=== PATIENT | female | born 1990 | race Caucasian/White ===

== ENCOUNTER 2017-06-04 12:43 | Outpatient (CLI) | payer OTHER ==
[~2017-06-04] VITALS: Ht 160 cm; Wt 87.2 kg
[2017-06-04 12:55] VITALS: BP 126/84
[2017-06-04 13:04] LABS: MICROSCOPIC AUTO
[2017-06-04 13:18] LABS: PROTEIN/CREATININE RATIO,URINE < 352 (0-200); TOTAL PROTEIN,URINE RANDOM < 5 mg/dL (0-12)
[2017-06-04 13:18] LABS: BASOPHILS # (AUTO) 0.05 x10^3/uL (0-0.1); BASOPHILS % (AUTO) 0 % (0-1); EOSINOPHILS # (AUTO) 0.14 x10^3/uL (0-0.4); EOSINOPHILS % (AUTO) 1 % (1-7); LYMPHOCYTES # (AUTO) 1.59 x10^3/uL (1-3.4); LYMPHOCYTES % (AUTO) 13 % (22-44); MD NO; MEAN CORPUSCULAR HEMOGLOBIN 30.9 pg (27.0-34.8); MEAN CORPUSCULAR HGB CONC 33.9 g/dL (32.4-35.8); MEAN CORPUSCULAR VOLUME 91.1 fL (80-100); MEAN PLATELET VOLUME 6.7 fL (7.4-10.4); MONOCYTES # (AUTO) 0.58 x10^3/uL (0.2-0.8); MONOCYTES % (AUTO) 5 % (2-9); NEUTROPHILS # (AUTO) 10.15 x10^3/uL (1.8-6.8); NEUTROPHILS % (AUTO) 81 % (42-75); PLATELET COUNT 383 x10^3/uL (130-400); RED BLOOD COUNT 3.81 x10^6/uL (3.82-5.3); RED CELL DISTRIBUTION WIDTH 12.9 % (9.6-15.2)
[2017-06-04 13:29] LABS: ALBUMIN 2.8 g/dL (3.4-5.0); ANION GAP 10 mmol/L (5-15); CALCIUM 8.5 mg/dL (8.5-10.1); CHLORIDE 109 mmol/L (98-107)
[2017-06-04 13:33] LABS: ALANINE AMINOTRANSFERASE 27 U/L (12-78); ALKALINE PHOSPHATASE 70 U/L (45-117); BILIRUBIN,TOTAL 0.3 mg/dL (0.2-1.0); CREATININE 0.45 mg/dL (0.55-1.02); TOTAL PROTEIN 6.6 g/dL (6.4-8.2)
[2017-06-04 13:34] LABS: BILIRUBIN, DIRECT < 0.1 mg/dL (0.1-0.2)
== END 2017-06-04 14:16 | disposition home or self-care (01) ==
LOC: LDOP 12:43
PROVIDERS: ATTEND Obstetrics & Gynecology
DX: O13.3 Gestational [pregnancy-induced] hypertension without significant proteinuria, third trimester (principal); Z3A.30 30 weeks gestation of pregnancy
CPT/HCPCS: 36415; 59025; 80053; 81001; 81050; 82248; 82570; 83615; 84156; 84550; 85025; 99201; G0463

== ENCOUNTER 2017-08-10 09:55 | Outpatient (CLI) | payer OTHER ==
[~2017-08-10] VITALS: Ht 160 cm; Wt 93.0 kg
[~2017-08-10 09:55] MED LIST: OMEP20TA62 PO; PREN1TAB60 PO
[2017-08-10 10:15] VITALS: BP 127/70
== END 2017-08-10 11:33 | disposition home or self-care (01) ==
LOC: LDOP 09:55 → EDSTATUS 08-12 09:54
PROVIDERS: ATTEND Obstetrics & Gynecology
DX: O26.893 Other specified pregnancy related conditions, third trimester (principal); R10.9 Unspecified abdominal pain; Z3A.39 39 weeks gestation of pregnancy
CPT/HCPCS: 59025; 99211; G0463

== ENCOUNTER 2017-08-11 07:55 | Inpatient (IN) | payer OTHER ==
[~2017-08-11] VITALS: Ht 160 cm; Wt 80.7 kg
[2017-08-11] MEDS ORDERED: D5%-LACTATED RINGERS 1,000 ML IV SCH (08:26)
[2017-08-11] MEDS ORDERED: OXYTOCIN 30U/ 0.9% NaCL 500ML 500 ML IV ONE (08:26)
[2017-08-11] MEDS ORDERED: TERBUTALINE 1 MG/ML, 1ML IVPush PRN (08:30)
[2017-08-11] MEDS ORDERED: FENTANYL PF 100 MCG/2ML IV PRN (08:30)
[2017-08-11] MEDS ORDERED: FENTANYL PF 100 MCG/2ML IVPush PRN (08:30)
[2017-08-11] MEDS ORDERED: ONDANSETRON 2MG/ML, 2ML IVPush PRN (08:30)
[2017-08-11] MEDS ORDERED: FENTANYL PF 100 MCG/2ML ONE (08:41)
[2017-08-11 09:04] LABS: MEAN CORPUSCULAR HEMOGLOBIN 29.8 pg (27.0-34.8); MEAN CORPUSCULAR HGB CONC 33.3 g/dL (32.4-35.8); MEAN CORPUSCULAR VOLUME 89.4 fL (80-100); MEAN PLATELET VOLUME 6.8 fL (7.4-10.4); PLATELET COUNT 384 x10^3/uL (130-400); RED BLOOD COUNT 3.93 x10^6/uL (3.82-5.3); RED CELL DISTRIBUTION WIDTH 13.7 % (9.6-15.2)
[2017-08-11] MEDS ORDERED: FENTANYL/BUPIV./NS/PF 250 ML EPIDCONT SCH ×2 (09:24)
[2017-08-11] MEDS ORDERED: LACTATED RINGERS 1,000 ML IV SCH ×2 (09:24)
[2017-08-11] MEDS ORDERED: BUPIVACAINE/PF 0.25% ONE (09:27)
[2017-08-11] MEDS ORDERED: FENTANYL/BUPIV./NS/PF 250 ML EPIDCONT ONE (09:27)
[2017-08-11] MEDS ORDERED: NALOXONE 0.4 MG/ML, 1ML IVPush PRN ×2 (09:30)
[2017-08-11] MEDS ORDERED: EPHEDRINE 50 MG/ML, 1ML IVPush PRN ×2 (09:30)
[2017-08-11] MEDS ORDERED: LACTATED RINGERS 1,000 ML IVBOLUS PRN ×2 (09:30)
[2017-08-11 09:33] LABS: BASOPHILS # (AUTO) 0.06 x10^3/uL (0-0.1); BASOPHILS % (AUTO) 0 % (0-1); EOSINOPHILS # (AUTO) 0.05 x10^3/uL (0-0.4); EOSINOPHILS % (AUTO) 0 % (1-7); LYMPHOCYTES # (AUTO) 1.45 x10^3/uL (1-3.4); LYMPHOCYTES % (AUTO) 11 % (22-44); MD SCAN; MONOCYTES # (AUTO) 0.53 x10^3/uL (0.2-0.8); MONOCYTES % (AUTO) 4 % (2-9); NEUTROPHILS # (AUTO) 11.54 x10^3/uL (1.8-6.8); NEUTROPHILS % (AUTO) 85 % (42-75)
[2017-08-11] MEDS: LACTATED RINGERS 1,000 ML IV SCH ×2 (10:17→20:29)
[2017-08-11] MEDS ORDERED: OXYTOCIN 30U/ 0.9% NaCL 500ML 500 ML ONE ×2 (12:15→19:01)
[2017-08-11] MEDS ORDERED: LIDOCAINE 1%, 20ML ONE (12:16)
[2017-08-11] MEDS ORDERED: MISOPROSTOL 200 MCG TABLET ONE (12:16)
[2017-08-11] MEDS ORDERED: OXYTOCIN 30U/ 0.9% NaCL 500ML 500 ML IV PRN (13:26)
[2017-08-11 13:52] LABS: ALANINE AMINOTRANSFERASE 15 U/L (12-78); ALBUMIN 2.6 g/dL (3.4-5.0); ANION GAP 9 mmol/L (5-15); CALCIUM 8.7 mg/dL (8.5-10.1); CHLORIDE 109 mmol/L (98-107); CREATININE 0.47 mg/dL (0.55-1.02)
[2017-08-11 13:53] LABS: BILIRUBIN, DIRECT < 0.1 mg/dL (0.1-0.2)
[2017-08-11 13:55] LABS: ALKALINE PHOSPHATASE 107 U/L (45-117); BILIRUBIN,TOTAL 0.3 mg/dL (0.2-1.0); TOTAL PROTEIN 6.3 g/dL (6.4-8.2)
[2017-08-11 13:56] LABS: CREATININE,URINE RANDOM < 13.00 mg/dL; PROTEIN/CREATININE RATIO,URINE < 385 (0-200); TOTAL PROTEIN,URINE RANDOM < 5 mg/dL (0-12)
[2017-08-11] MEDS ORDERED: NEWBORN KIT ONE (16:43)
[2017-08-11] MEDS ORDERED: ACETAMINOPHEN 325 MG TABLET ONE (17:17)
[2017-08-11] MEDS ORDERED: ACETAMINOPHEN 325 MG TABLET PO PRN ×3 (17:30→19:00)
[2017-08-11] MEDS: OXYTOCIN 30U/ 0.9% NaCL 500ML 500 ML IV SCH ×5 (18:50→23:08)
[2017-08-11] MEDS ORDERED: CARBOPROST TROMETHAMINE 250 MCG/ML, 1ML IM PRN (19:00)
[2017-08-11] MEDS ORDERED: MISOPROSTOL 200 MCG TABLET PR PRN (19:00)
[2017-08-11] MEDS ORDERED: BISACODYL 10 MG SUPP PR PRN (19:00)
[2017-08-11] MEDS ORDERED: HYDROcodone/APAP 5/325 TABLET PO PRN ×2 (19:00)
[2017-08-11] MEDS ORDERED: ONDANSETRON 2MG/ML, 2ML IV PRN (19:00)
[2017-08-11] MEDS ORDERED: CALCIUM CARBONATE 500 MG TAB.CHEW PO PRN (19:00)
[2017-08-11 20:04] VITALS: BP 128/58
[2017-08-11 21:15] VITALS: BP 110/67
[2017-08-12 00:10] VITALS: BP 107/61
[2017-08-12] MEDS: OXYTOCIN 30U/ 0.9% NaCL 500ML 500 ML IV SCH ×7 (00:34→14:50)
[2017-08-12] MEDS: IBUPROFEN 600 MG TABLET PO PRN ×3 (03:18→19:44)
[2017-08-12 03:28] VITALS: BP 121/77
[2017-08-12 05:15] LABS: BASOPHILS # (AUTO) 0.03 x10^3/uL (0-0.1); BASOPHILS % (AUTO) 0 % (0-1); EOSINOPHILS % (AUTO) 1 % (1-7); LYMPHOCYTES % (AUTO) 12 % (22-44); MD NO; MEAN CORPUSCULAR HGB CONC 34.4 g/dL (32.4-35.8); MEAN PLATELET VOLUME 6.7 fL (7.4-10.4); MONOCYTES % (AUTO) 6 % (2-9); NEUTROPHILS # (AUTO) 13.46 x10^3/uL (1.8-6.8); NEUTROPHILS % (AUTO) 82 % (42-75); PLATELET COUNT 333 x10^3/uL (130-400); RED CELL DISTRIBUTION WIDTH 13.5 % (9.6-15.2)
[2017-08-12 08:00] VITALS: BP 118/79
[2017-08-12] MEDS: PRENATAL VIT/IRON/FA 1 EACH TABLET PO SCH (09:00)
[2017-08-12 12:25] VITALS: BP 124/80
[2017-08-12] MEDS ORDERED: MEASLES,MUMPS&RUBELLA VACC/PF 0.5 ML SQ-VACC ONE (13:30)
[2017-08-12 16:07] VITALS: BP 119/69
[2017-08-12] MEDS: DOCUSATE 100 MG CAPSULE PO PRN (19:44)
[2017-08-12 20:00] VITALS: BP 126/75
[2017-08-13] MEDS: OXYTOCIN 30U/ 0.9% NaCL 500ML 500 ML IV SCH (00:50)
[2017-08-13] MEDS: PRENATAL VIT/IRON/FA 1 EACH TABLET PO SCH (08:17)
[2017-08-13] MEDS: IBUPROFEN 600 MG TABLET PO PRN ×2 (08:17→15:41)
[2017-08-13] MEDS: DOCUSATE 100 MG CAPSULE PO PRN (08:17)
[2017-08-13 08:40] VITALS: BP 126/76
[2017-08-13] MEDS ORDERED: DOCU-131 PO (10:06)
[2017-08-13] MEDS ORDERED: IBUP-1222 PO (10:06)
[2017-08-13] MEDS ORDERED: MEASLES,MUMPS&RUBELLA VACC/PF 0.5 ML SQ-VACC ONE (10:30)
== END 2017-08-13 17:23 | disposition home or self-care (01) | DRG 775 ==
LOC: LDOP 07:55 → LDIP 08:33 → 2NW 21:02
PROVIDERS: ADMIT Obstetrics & Gynecology; ATTEND Obstetrics & Gynecology
PROC: 10E0XZZ Delivery of Products of Conception, External Approach (ICD-10-PCS; principal; 2017-08-11)
PROC: 0HQ9XZZ Repair Perineum Skin, External Approach (ICD-10-PCS; 2017-08-11)
PROC: 10907ZC Drainage of Amniotic Fluid, Therapeutic from Products of Conception, Via Natural or Artificial Opening (ICD-10-PCS; 2017-08-11)
PROC: 3E0R3BZ Introduction of Anesthetic Agent into Spinal Canal, Percutaneous Approach (ICD-10-PCS; 2017-08-11)
PROC: 00HU33Z Insertion of Infusion Device into Spinal Canal, Percutaneous Approach (ICD-10-PCS; 2017-08-11)
PROC: 10H07YZ Insertion of Other Device into Products of Conception, Via Natural or Artificial Opening (ICD-10-PCS; 2017-08-11)
DX: O16.4 Unspecified maternal hypertension, complicating childbirth (principal); E66.9 Obesity, unspecified; O62.2 Other uterine inertia; Z37.0 Single live birth; O70.0 First degree perineal laceration during delivery; Z3A.39 39 weeks gestation of pregnancy; O99.214 Obesity complicating childbirth; Z68.31 Body mass index [BMI] 31.0-31.9, adult
CPT/HCPCS: 36415; 80053; 82248; 82570; 83615; 84156; 84550; 85025; 86850; 86900; J3010; J2590; J7120